=== PATIENT | male | born 1935 | race Caucasian/White ===

== ENCOUNTER → 2017-09-10 07:50 | Day surgery (SDC) | payer MEDICARE ==
[~2017-09-10 07:50] MED LIST: Acetaminophen TAB* 325 MG PO PRN; Diazepam TAB(*) 5 MG ONE; Heparin 2 UNITS/ML IVPREMIX* 2,000 ML IV ONE; Heparin(*) 1000 UNIT/ML 10 ML VIAL CATH LAB IV ONE; Iohexol 350 (CONTRAST) 200 ML MDV IV ONE; Lidocaine 1%* 5 ML VIAL ONE; Midazolam* 1 MG/ML 10 ML VIAL (10 MG) ONE; NS 0.9% 1000 ML* 1,000 ML IV SCH; VERAPAMIL 2.5 MG/ML 2 ML VIAL ** 5 mg/2 ml ONE; fentaNYL* 50 MCG/ML 2 ML VIAL (100 MCG VIAL) ONE; nitroGLYCERIN DRIP* 25,000 MCG/250 ML BTL ONE
[2017-09-10 13:12] VITALS: BP 164/76
--- NOTE | 2017-09-11 13:48 | CATH ---
CC: Dr. Limon; Dr. Gage Hood; Dr. Abel Graham * CARDIAC CATHETERIZATION REPORT: DATE OF PROCEDURE: 09/10/17 - [facility] CATH PROCEDURE: Cardiac catheterization including left heart catheterization, coronary angiography, left ventriculogram. INDICATION FOR PROCEDURE: Cardiomyopathy, abnormal stress test. The patient is an 82-year-old gentleman, who is being evaluated by Dr. Hood for knee replacement surgery. He underwent an echocardiogram and chemical nuclear stress test. His stress test showed an area of infarct to his inferior wall, but an area of ischemia to his lateral wall. His ejection fraction was 35 % with inferior wall hypokinesis. Cardiac catheterization was recommended for further evaluation. DESCRIPTION OF PROCEDURE: The patient was brought to the cardiac catheterization lab in a fasting state. Informed consent had been obtained prior to the procedure. All labs have been reviewed. The patient was placed supine on the catheterization table. His right wrist area was prepped and draped in the usual fashion. 1% lidocaine was used for local anesthesia. The radial artery was entered by Seldinger technique and a guidewire was placed. Over the guidewire, a 6-Maldivian hydrophilic sheath was placed. I was able to advance the wire up to the innominate artery; however, severe tortuosity prevented the catheter from traversing the innominate artery into the aortic arch. The radial procedure was abandoned. His femoral arteries were prepped and draped in the usual fashion. 1% lidocaine was used for local anesthesia. The femoral artery was entered by a modified Seldinger technique and a 6-Maldivian sheath introducer was placed. The patient underwent coronary angiography and a left ventriculography using a 6-Maldivian pigtail catheter, a 6-Maldivian JL4 catheter , a 6-Maldivian JR4 catheter. At the end of the procedure, all sheaths and catheters were removed. The patient tolerated the procedure with no complications. A total of 105 cc of Omnipaque dye was used. A total of 7.2 minutes of fluoro time was used. FINDINGS: Hemodynamics: Central aortic blood pressure 122/52 with a mean of 76 , LV pressure 123/12 with an end-diastolic pressure of 20. Left ventriculogram: Left ventricle was normal in size. Overall systolic function was moderately to severely reduced. Estimated ejection fraction of 30 % to 35%. There was severe akinesis of the inferior wall. There was hypokinesis of the apex. The anterior wall had normal contraction. There was no mitral regurgitation. The aortic valve and ascending aorta were normal. Coronary arteries: 1. Left main artery. The left main was normal in size. It had heavy calcification of the ostium. There was a 70% stenosis of the ostium. There was dampening of the catheter with engagement of the left main. The remainder of the left main artery was normal and bifurcated into the LAD and circumflex. 2. Left circumflex artery. The circumflex artery was normal in size. It gave off 2 obtuse marginal branches. The circumflex itself had mild disease, but no critical stenosis. There was an OM vessel that was subtotally occluded that filled late. 3. Left anterior descending artery. The LAD was normal in size. It gave off 2 diagonal vessels. The proximal LAD had mild calcification. The remainder of the vessel was without significant disease. There is a D1 vessel off the LAD that is a small vessel, measures about 1 mm in size; it has a 70% stenosis in the mid-to- distal portion of the D1 vessel. 4. Right coronary artery. The RCA is occluded at the proximal vessel. There is [id number] collaterals to the PDA via septal perforators. IMPRESSION: 1. Moderately to severely reduced left ventricular systolic function with ejection fraction of 35% with inferior wall akinesis. 2. 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 3. No significantly critical stenosis of the diagonal, left circumflex artery. 4. A small D1 vessel off the left anterior descending artery had a 60% stenosis of mid vessel. 5. Occluded right coronary artery. RECOMMENDATION: Given the severe stenosis of the left main artery, it is recommendation that the patient undergo coronary bypass surgery. The patient has agreed to this. The patient will have a consultation with Dr. Graham as an outpatient. [id number]/[facility] #: [id number] RUIZ
== END | disposition home or self-care (01) ==
LOC: CHICATH 07:50
PROVIDERS: ATTEND Specialist
DX: I25.5 Ischemic cardiomyopathy (principal); I25.10 Atherosclerotic heart disease of native coronary artery without angina pectoris; R06.02 Shortness of breath; I10 Essential (primary) hypertension; R94.31 Abnormal electrocardiogram [ECG] [EKG]; M17.11 Unilateral primary osteoarthritis, right knee; J44.9 Chronic obstructive pulmonary disease, unspecified; Z85.46 Personal history of malignant neoplasm of prostate; I45.10 Unspecified right bundle-branch block; Z72.0 Tobacco use
CPT/HCPCS: 93458; 99156; 99157; A9270-GY; C1760; C1887; J1644; J2250; J3010